=== PATIENT | female | born 1990 | race Caucasian/White ===

== ENCOUNTER 2016-03-04 16:47 | Emergency (ER) | payer OTHER ==
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
--- NOTE | 2016-03-04 20:02 | RAD ---
RIGHT KNEE FOUR VIEWS 03/04/16 No fracture, dislocation, or joint space narrowing was seen. The joint spacing is normal. IMPRESSION: No acute finding. POS: HOME
== END 2016-03-04 17:27 | disposition home or self-care (01) ==
LOC: BURERS 16:47
DX: S80.01XA Contusion of right knee, initial encounter (principal); V47.5XXA Car driver injured in collision with fixed or stationary object in traffic accident, initial encounter
CPT/HCPCS: 99284